=== PATIENT | male | born 2000 | race Hispanic/Latino ===

== ENCOUNTER 2020-10-09 13:48 | Emergency (ER) | payer OTHER ==
[~2020-10-09] VITALS: Ht 170.2 cm; Wt 72.6 kg
== END 2020-10-09 16:09 | disposition home or self-care (01) ==
LOC: ED 13:48
DX: S61.012A Laceration without foreign body of left thumb without damage to nail, initial encounter (principal); S81.011A Laceration without foreign body, right knee, initial encounter; W26.8XXA Contact with other sharp object(s), not elsewhere classified, initial encounter
CPT/HCPCS: 12002; 90471; 90715; 99282-25

== ENCOUNTER 2022-10-22 08:56 | Emergency (ER) | payer OTHER ==
[~2022-10-22] VITALS: Ht 170.2 cm; Wt 74.8 kg
== END 2022-10-22 10:12 | disposition home or self-care (01) ==
LOC: ED 08:56
DX: S80.11XA Contusion of right lower leg, initial encounter (principal); X58.XXXA Exposure to other specified factors, initial encounter
CPT/HCPCS: 73590; 99283-25